=== PATIENT | male | born 1980 | race Caucasian/White ===

== ENCOUNTER 2019-09-08 15:45 | Emergency (ER) | payer OTHER, SELFPAY ==
[2019-09-08 16:03] VITALS: BP 105/60; PULSE 93; RESP 16; TEMP 37.9; O2SAT 97
--- NOTE | 2019-09-08 16:04 | ED.URI ---
HPI - URI/Sore Throat General Chief Complaint: Upper Respiratory Infection Stated Complaint: Body aches/cough/Fever/chills Time Seen by Provider: 09/08/19 16:22 Source: patient and RN notes reviewed Mode of arrival: ambulatory Limitations: no limitations History of Present Illness HPI Narrative: 39-year-old male presents with concern for fever, cough, body aches, ear pain. Reports he and his both came down with symptoms yesterday. Denies taking any medicines for symptoms MD elicited complaint: cough Related Data Allergies Allergy/AdvReac Type Severity Reaction Status Date / Time No Known Allergies Allergy Verified 09/08/19 16:12 Review of Systems Review of Systems: Narrative: CONSTITUTIONAL: Reports malaise, chills, sweats, or fever. EYES: Denies visual changes, redness, or discharge. ENT: Denies rhinorrhea, congestion, sinus pain, and sore throat. Reports otalgia CARDIOVASCULAR: Denies chest pain, palpitations, or edema. RESPIRATORY: Reports cough. Denies dyspnea. GASTROINTESTINAL: Denies abdominal pain, nausea, vomiting, diarrhea SKIN: Denies rash or itching. MUSCULOSKELETAL: Reports myalgia. NEUROLOGIC: Denies headache. All systems reviewed & are unremarkable except as noted in HPI and below PMFSH Comments At time of signature, agree with nursing past medical, surgical, social and family history. There is no relevant family history pertinent to the presenting complaint Exam Narrative: Exam Narrative: GENERAL: Well-appearing, well-nourished, and in no acute distress. HEAD: Normocephalic EYES: PERRLA, conjunctivae clear ENT: Nares clear, turbinates erythematous, clear discharge. Mucous membranes moist. TM pearly christiansen with dull light reflex bilaterally; no tragal tenderness. Oropharynx not erythematous without lesions. Tonsils not enlarged and without exudate, no drooling, no hoarseness, no trismus, uvula midline. NECK: Supple. No lymphadenopathy CHEST: Clear to auscultation, breath sounds equal. No wheezing, rhonchi, rales, or stridor. No respiratory distress, speaks in full sentences. Cough noted HEART: Regular rate and rhythm. No murmur heard. SKIN: Warm, dry, no rash. NEURO: Alert and oriented x3. PSYCH: Normal mood and affect Course Course Emergency Course: Patient is aware of diagnosis, understands and agrees to treatment plan. Anticipatory guidance given. Patient agrees to follow-up as directed and is aware of reasons to seek care at the emergency department. Portions of this record may have been created with voice recognition software Vital Signs Vital signs: Vital Signs Temperature 100.3 F H 09/08/19 16:03 Pulse Rate 93 09/08/19 16:03 Respiratory Rate 16 09/08/19 16:03 Blood Pressure 105/60 09/08/19 16:03 Pulse Oximetry 97 09/08/19 16:03 Temperature 100.3 F H 09/08/19 16:03 Pulse Rate 93 09/08/19 16:03 Respiratory Rate 16 09/08/19 16:03 Blood Pressure 105/60 09/08/19 16:03 Pulse Oximetry 97 09/08/19 16:03 Reviewed. MDM - URI/Sore Throat MDM Narrative Medical decision making narrative: Differential diagnosis considered: Strep pharyngitis, allergic rhinitis, upper respiratory tract infection, sinusitis, rhinosinusitis, nasopharyngitis. viral pharyngitis, otitis media, otitis externa, pneumonia, bronchitis, viral cough syndrome, viral syndrome, and influenza. Exam findings show no acute concerns or changes; patient is non-toxic appearing and is in no distress. Patient is appropriate for outpatient treatment and follow-up. Lab Data Attestation: I reviewed the patient's lab results. Labs: Influenza A Screen Negative Reference Range: Negative Influenza B Screen Negative Reference Range: Negative Critical Care Time Critical Care Time Critical Care Time: No Discharge Plan Discharge Clinical Impression: Influenza-like illness Patient Disposition: Home, Self-Care Condition: Stable Instructions: Influenza (ED)
== END 2019-09-08 16:40 | disposition home or self-care (01) ==
PROVIDERS: Emergency Provider Nurse Practitioner
DX: R05 Cough (principal); R50.9 Fever, unspecified; R52 Pain, unspecified
CPT/HCPCS: 87804; 99213; G0463

== ENCOUNTER 2022-07-03 12:43 | Emergency (ER) | payer BC, SELFPAY ==
[2022-07-03 12:52] VITALS: BP 132/87; PULSE 94; RESP 16; TEMP 36.6; O2SAT 98
--- NOTE | 2022-07-03 13:11 | ED.DENTAL ---
HPI - Dental/Oral General Chief complaint: Dental/Oral Stated complaint: jaw swollen Time Seen by Provider: 07/03/22 13:09 Source: patient Mode of arrival: ambulatory History of Present Illness HPI Narrative: 41-year-old male with history of tooth decay presented for complaint of right lower gum swelling, onset yesterday. States the swelling has increased over the last 3 hours. Denies injury or recent broken tooth. He has taken ibuprofen and orajel and used a tea bag to attempt to draw out infection. He endorses multiple broken teeth and caries. He is scheduled to see a dentist 07/23/2022 for possible extraction. Denies otalgia, nausea, vomiting, diarrhea, fever chills. 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 Also smoked cigarettes since age 8 and now only smokes cigars. MD Complaint: tooth pain Related Data Allergies Allergy/AdvReac Type Severity Reaction Status Date / Time No Known Allergies Allergy Verified 02/24/21 14:49 Review of Systems Review of Systems: CONSTITUTIONAL: Denies body aches, fever, chills ENT: Denies rhinorrhea, congestion, sore throat, or otalgia. Reports dental pain CARDIOVASCULAR: Denies chest pain, palpitations RESPIRATORY: Denies cough or dyspnea. SKIN: Denies rash, itching, or wounds. MUSCULOSKELETAL: Denies myalgia. NEUROLOGIC: Denies headache, numbness, tingling, or weakness. PMFSH Comments At time of signature, I have reviewed and agree with nursing past medical, surgical, social and family history unless otherwise noted. Please see nursing chart for further information. There is no relevant family history pertinent to the presenting complaint Exam Narrative: GENERAL: Appears in pain; no acute distress. HEAD: Normocephalic, atraumatic. EYES: EOMI. No redness or drainage. Conjunctivae normal. ENT: Dental pain location of #29, decaying tooth noted with lateral gum swelling and redness, tender; no active drainage; Mucous membranes pink and moist. TMs normal bilaterally. Throat normal. Uvula midline. NECK: Normal AROM. No lymphadenopathy. CHEST: Clear to auscultation. HEART: Regular rate and rhythm. No murmur appreciated. SKIN: Warm, dry, no rash. NEURO: Alert and oriented x3. Gait steady. Course Course Emergency Course: Patient is aware of diagnosis, understands and agrees to treatment plan. Anticipatory guidance given. Patient agrees to follow-up as directed and is aware of reasons to seek care at the emergency department. Portions of this record may have been created with voice recognition software Level of Care: Express Care Visit Vital Signs Vital signs: Vital Signs Temperature 97.8 F 07/03/22 12:52 Pulse Rate 94 07/03/22 12:52 Respiratory Rate 16 07/03/22 12:52 Blood Pressure 132/87 07/03/22 12:52 Pulse Oximetry 98 07/03/22 12:52 Oxygen Delivery Room Air 07/03/22 12:52 Temperature 97.8 F 07/03/22 12:52 Pulse Rate 94 07/03/22 12:52 Respiratory Rate 16 07/03/22 12:52 Blood Pressure 132/87 07/03/22 12:52 Pulse Oximetry 98 07/03/22 12:52 Oxygen Delivery Room Air 07/03/22 12:52 MDM - Dental/Oral MDM Narrative Medical decision making narrative: There are no focal signs of space occupying lesions that are compromising to the airway; no dysphagia, odynophagia, dysphonia, or dyspnea. No uvular deviation or soft palate edema. Patient is non-toxic appearing. The floor of the mouth is soft with no signs of Anthony's Angina; no induration below mandible, no neck pain. Patient is without trismus or drooling and able to swallow secretions. Patient is felt appropriate for discharge home with dental follow up as scheduled. Declines Rx Motrin. Differential Diagnosis Differential diagnosis: Likely gingival abscess, dental caries, toothache, dental abscess, fracture of tooth and aphthous ulcer Discharge Plan Discharge Clinical Impression: Dental abscess Patient Disposition: Home, Self-Care Condition: Stable Inst
== END 2022-07-03 13:24 | disposition home or self-care (01) ==
PROVIDERS: Emergency Provider Nurse Practitioner Family
DX: K04.7 Periapical abscess without sinus (principal)
CPT/HCPCS: 99213; G0463

== ENCOUNTER 2025-03-09 15:21 | Emergency (ER) | payer BC, SELFPAY ==
[2025-03-09 15:31] VITALS: BP 138/87; PULSE 82; RESP 18; TEMP 36.6; O2SAT 100
--- NOTE | 2025-03-09 16:04 | ED.HA ---
HPI - Headache General Chief Complaint: Headache Stated Complaint: Left Ear Pain/Headache Source: patient Mode of arrival: ambulatory Limitations: no limitations History of Present Illness HPI Narrative: Pt presents for evaluation of shock sensation in the left side of the head since yesterday. He state he had a closed head injury in 2007 after he fell and striking his head. He developed what he states is stroke-like symptoms in 2014, noting slurred speech, facial droop and episodes dropping things. He saw several neurologists and states that they were unable to determine the cause of his symptoms. At some point someone told him that he was having cluster headaches. Yesterday morning he developed sharp shock-like sensations in the left side of his head and ear. He also reports a tingling sensation in the left side of his head, left scalp sensitivity and problems with slurred speech. He denies any infectious symptoms including fever, cough, or sore throat. Related Data Home Medications ?Medication ?Instructions ?Recorded ?Confirmed ?Last Taken ?Type No Home Medications 03/09/25 03/09/25 Unknown History Allergies Allergy/AdvReac Type Severity Reaction Status Date / Time No Known Allergies Allergy Verified 03/09/25 15:33 Review of Systems Review of Systems: CONSTITUTIONAL: Denies fever, chills, or sweats. EYES: Denies visual changes, redness, or discharge. ENT:Reports left sided ear pain. Denies rhinorrhea, congestion, or sore throat CARDIOVASCULAR: Denies chest pain, palpitations, or edema. RESPIRATORY: Denies cough or dyspnea. GASTROINTESTINAL: Denies abdominal pain, nausea, vomiting, or diarrhea. GENITOURINARY: Denies dysuria or hematuria. SKIN: Denies rash or itching. MUSCULOSKELETAL: Denies back pain, joint pain, or myalgia. NEUROLOGIC: Reports headache, slurred speech and tingling sensation to the left side of his scalp PSYCHIATRIC: Denies anxiety or depression. [facility] Past Medical History Medical History No pertinent past medical history Surgical History Surgical History History of hernia repair Family History Family History Mother Family history non-contributory Social History Social History Smoking status: Former smoker Tobacco type: cigarettes Gender identity (if verbalized by the patient): Male Spiritual care concerns: No Exam Narrative: GENERAL: Well-appearing, well-nourished, and in no acute distress. HEAD: Normocephalic, atraumatic. EYES: PERRLA and EOMI. ENT: Nares clear, no rhinorrhea or epistaxis. Mucous membranes moist. Oropharynx without tonsillar hypertrophy exudate or other lesions. Bilateral TMs pearly christiansen nonbulging NECK: Supple. No adenopathy or masses. No carotid bruits or JVD CHEST: Clear to auscultation. No respiratory distress. No wheezes rales or rhonchi HEART: Regular rate and rhythm. No murmur heard. Normal peripheral pulses. ABDOMEN: Soft, nontender, nondistended, normal active bowel sounds. EXTREMITIES: Normal range of motion. No edema. SKIN: Warm, dry, no rash. NEURO: No focal deficits. Alert and oriented x3. Normal finger to nose exam. Able to perform rapid alternating movements without difficulty. PSYCH: Normal mood and affect. Course Course Emergency Course: This is a 44-year-old male who presented for evaluation shock-like sensations in his head with a prior history of stroke-like symptoms. His physical exam for me is unremarkable, although his subjective complaints are concerning. I recommended he go to the hospital for further evaluation. [facility] is his facility of choice. I contacted [facility] and spoke with nurse, Efrain. He indicates that Dr Haywood agrees to accept pt for transfer there. Patient transferred via private vehicle. Level of Care: Express Care Visit Vital Signs Vital signs: Vital Signs Temperature 36.6 C 03/09/25 15:31 Pulse Rate 82 03/09/25 15:31 Respiratory Rate 18 03/09/25 15:31 Blood Pressure 138/87 03/09/25 15:31 Pulse Oximetry 100 03/09/25 15:31 Oxygen Delivery Room Air 03/09/25 15:31 Temperature 36.6 C 03/09/25 15:31 Pulse Rate 82 03/09/25 15:31 Respiratory Rate 18 03/09/25 15:31 Blood Pressure 138/87 03/09/25 15:31 Pulse Oximetry 100 03/09/25 15:31 Oxygen Delivery Room Air 03/09/25 15:31 Discharge Plan Discharge Clinical Impression: Headache, Paresthesias Patient Disposition: Acute Care Hospital Condition: Stable Patient Language: German Prescriptions: No Action No Home Medications Follow-up/Referrals: PHYSICIAN NOT ON STAFF,NONSTAFF [Primary Care Provider] Time of Disposition: 16:19
--- OUTSIDE RECORDS SUMMARY | 2025-03-09 16:38 | XMS_ITS | Encounter Summary ---
Author Organization [facility] Address [address] [place] [address] Phone Care Team Providers Care Biodiesel Product Manager Name Role Phone Adilson Barragan MD Primary Care Provider + [phone] Feng Casanova APRN, VESSEL MASTER Unavailable [phone] Reason for Visit * Reason Onset Date Comments Prior Authorization 07/09/2023 Auth Denied- No P2P offeredOrdering Provider: InternalAppointment Info:Clinic: [facility] Provider: [facility] Appt Date/Time: Saturday 7:30 PM Payor + Plan: [employer] [place] [employer] [place] PPOCPT/Test: [id number] denied through: ELISHA Reason for denial: Your doctor told us you stop breathing for short periods of time while you are sleeping (sleep apnea). Your doctor ordered a sleep test Encounter Details Date Type Department Care Team ([facility] st Contact Info) Description 07/09/2023 Telephone [facility] Outpatient [address] [place] [address] Feng Casanova APRN, VESSEL MASTER #[address] [address] Prior Authorization (Auth Denied-No P2P offered//Ordering Provider: Internal//Appointment Info:/Clinic: [facility] /Provider: [facility] Appt Date/Time: Saturday 7:30 PM/ / //Payor + Plan: [place]//CPT/Test: 49820/Authorization denied through: CARELON //Reason for denial: Your doctor told us you stop breathing for short periods of time while you are sleeping (sleep apnea). Your doctor ordered a sleep test ) Social History Tobacco Use Types Packs/Day Years Used Date Smoking Tobacco: Some Days Cigarettes Cigars Smokeless Tobacco: Never Alcohol Use Standard Drinks/Week Comments Yes 0 (1 standard drink = 0.6 oz pur e alcohol) sometimes Sex and Gender Information Value Date Recorded Sex Assigned at Not on file Legal Sex Male 11:01 AM CDT Gender Identity Not on file Sexual Orientation Not on file documented as of this encounter Miscellaneous Notes * Telephone Encounter - Roya Flannery RN - 07/15/2023 2:37 PM CST LMOM 07/15/23 INSPECTOR * Telephone Encounter - Roya Flannery RN - 07/10/2023 11:40 AM CST LMOM 07/10/23 INSPECTOR * Telephone Encounter - Marisol Calvillo - 07/09/2023 11:05 AM CST Auth Denied-No P2P offered Ordering Provider: Internal Appointment Info: Clinic: [facility] Provider: [facility] Appt Date/Time: Saturday 7:30 PM Payor + Plan: [place] CPT/Test: 80688 Authorization denied through: ELISHA Reason for denial: Your doctor told us you stop breathing for short periods of time while you are sleeping (sleep apnea). Your doctor ordered a sleep test to see how a person breathes when asleep. Your doctor wants this test to be done in a sleep lab setting. It is common for people to have this test done at home. You need to have a reason why this test cannot be done at home. These reasons might include lung or heart disease. We reviewed the notes we have. The notes do not show that you cannothave this test done at home. Based on the information we have, this test is not medically necessary. We used [facility] Medical Benefits Management Clinical Guideline titled Sleep Disorder Management, Polysomnography and Home Sleep Apnea Testing to make this decision. You may view this guideline at www.carelon.com/fxi-[email or web address]. Add'l Steps Taken (Pt Notified, Reached out to Provider, etc.): SENT TE TO PROVIDER AND NURSE POOL Peer to Peer review offered by Payer: Yes Peer to Peer review expires: 07/19/23 Case #: [id number] Phone #: [phone] Physician: FENG Mcguire Notified? Yes Note for ordering office: If patient wishes to cancel the appointment, please complete cancellationprocess from the patient's appointment desk. Notification Made to Patient: No If no, provide reason: INSPECTOR documented in this encounter Plan of Treatment Not on file documented as of this encounter Visit Diagnoses Not on filedocumented in this encounter Care Teams Biodiesel Product Manager Relationship Specialty Start Date End Date Adilson Barragan MD [id number] [facility] [address] [place] [address] PCP - General Family Medicine 03/15/23 eFng Casanova APRN, CNP #2 [facility] [address] [place] [address] Nurse Practitioner Advanced Practice Nurse 06/12/23 documented as of this encounter
--- OUTSIDE RECORDS SUMMARY | 2025-03-09 16:38 | XMS_ITS | Clinical Summary ---
Author Organization [facility] Address [address] [place] [address] Care Team Providers Care Counter Manager Name Role Phone Adilson Barragan MD Primary Care Provider [phone] Gililan Banuelos PT Unavailable Unavailabl e Peterson Cazares MD Unavailable [phone] Allergies Active Allergy Reactions Criticality Noted Date Comments Naproxen Stomach upset Low 05/11/2024 Medications No known medications Active Problems Problem Noted Date Diagnosed Date Dental caries 05/04/2022 Mass of right submandibular region 05/04/2022 Right inguinal hernia 03/01/2022 Assessment & Plan (05/03/2022 9:02 AM CDT): Patient will avoid heavy lifting for 4 weeks. Then can return to work unrestricted. No submerging incisions for another week. Stool softener if needed to avoid straining. Patient will call back with any further questions or concerns. Assessment & Plan (03/01/2022 9:55 AM CDT): We will set the patient up for a robotic assisted right inguinal hernia repair with mesh. Postoperative restrictions have been discussed with regards to weight restrictions. Time needed off work also discussed. Pre-admission testing will be sent in. Consent to be obtained. All questions answered. Hemorrhoids 05/28/2018 Pneumonia due to infectious organism 05/28/2018 Liver cyst 05/28/2018 Elevated d-dimer 05/26/2018 Assessment & Plan (05/26/2018 5:25 AM PROP ATTENDANT): At on D-dimer was significantly elevated. CT of the chest was obtained. There was no definite pulmonary embolism described I had extensive discussion regarding risks and benefits of systemic anticoagulation including and not limited to GI bleed. Patient verbalized understanding. Given the history of increased pain with ambulation, leg swelling and elevated D-dimers will start on systemic anticoagulation with heparin. Also discussed if ultrasound is positive for blood clot and if stool is positive for blood patient most likely will need IVC filter placement to prevent pulmonary embolism. Patient verbalized understanding Check for stool for Hemoccult Duplex Ultrasound of the right lower extremity in a.m. To rule out DVT Cellulitis and abscess of leg 05/26/2018 Assessment & Plan (05/26/2018 5:32 AM PROP ATTENDANT): Right lower extremity with excoriations and mildly erythema. Patient was started on Rocephin and vancomycin White cell count is normal, lactate is negative Blood cultures are in progress Monitor CBC and BMP History of bloody stools 05/26/2018 Assessment & Plan (05/26/2018 5:19 AM PROP ATTENDANT): Patient reports recurrent episodes of bloody stools. Will obtain stool for Hemoccult Patient does not have primary care physician at this point Will get GI consult for further evaluation . Discussed possible causes which will include but not limited to hemorrhoids, IBD, colitis, diverticulitis polyps, av malformations, malignancy, etc. Patient verbalized understand also understands that at some point will need evaluation with colonoscopy and EGD for further assessment Will get social work consult to assist to establish with PCP Arm paresthesia, left 05/26/2018 Assessment & Plan (05/26/2018 5:34 AM PROP ATTENDANT): Patient reports previous history of injury to the neck area with pinched nerve. Completed physical therapy with significant improvement still complains of some paresthesia in the left arm. Will start on telemetry Will check for TSH and B12 level No personal history of of diabetes Will replete as needed Hypokalemia 05/26/2018 Assessment & Plan (05/26/2018 5:34 AM PROP ATTENDANT): Repleted with KCl Resolved Problems Problem Noted Date Diagnosed Date Resolved Date Unilateral inguinal hernia w ith obstruction and without gangrene 03/13/2022 05/03/2022 Overview (03/13/2022): Added automatically from request for surgery [id number] Acute deep vein thrombosis ( DVT) of distal end of right lower extremity 05/26/2018 05/26/2018 Assessment & Plan (05/26/2018 5:26 AM PROP ATTENDANT): Most likely acute DVT of the right lower extremity given increased pain with ambulation, leg swelling and elevated D-dimers Plan is discussed as above Surgical History Surgery Date Site/Laterality Comments WRIST SURGERY Left HERNIA REPAIR INGUINAL HERNIA REPAIR 04/24/2022 Right Medical History Medical History Date Comments Pleurisy Arthritis GI bleed IBS (irritable bowel syndrome) pinched nerve in neck causing st roke like symptoms for over a year Allergic rhinitis Stroke (HCC) Family History Medical History Relation Name Comments GI Bleed Father Hepatitis Father No Known Problems Mother Arthritis Other Stroke Other Relation Name Status Comments Father Mother Alive Other Social History Tobacco Use Types Packs/Day Years Used Date Smoking Tobacco: Every Day Cigars Started: 2017 Smokeless Tobacco: Never Tobacco Cessation:Ready to Q uit: Not Asked; Counseling Given: Not Answered Alcohol Use Standard Drinks/Week Comments Yes 0 (1 standard drink = 0.6 oz pur e alcohol) rarely AUDIT-C Answer Date Recorded Q1: How often do you have a drink containing alc ohol? Monthly or less 04/24/2022 Q2: How many drinks containi ng alcohol do you have on a typical day when you are drinking? 1 or 2 04/24/2022 Q3: How often do you have si x or more drinks on one occasion? Never 04/24/2022 Personal Safety Answer Date Recorded Have you ever been in or are you currently in a harmful physical or emotional relationship or is someone making you feel afraid or unsafe? Denies 05/11/2024 Sex and Gender Information Value Date Recorded Sex Assigned at Not on file Legal Sex Male 5:43 AM PROP ATTENDANT Gender Identity Not on file Sexual Orientation Not on file Obstetrics History Last Filed Vital Signs Vital Sign Reading Time Taken Comments Blood Pressure 113/81 05/11/2024 10:05 AM PROP ATTENDANT Pulse 88 05/11/2024 10:05 AM PROP ATTENDANT Temperature 36.4 C (97.5 F) 05/11/2024 9:25 AM PROP ATTENDANT Respiratory Rate 16 05/11/2024 10:05 AM PROP ATTENDANT Oxygen Saturation 97% 05/11/2024 10:05 AM PROP ATTENDANT Inhaled Oxygen Concentration - - Weight 61.2 kg (135 lb) 05/11/2024 9:25 AM PROP ATTENDANT Height 160 cm (5' 3) 05/11/2024 9:25 AM PROP ATTENDANT Body Mass Index 23.91 05/11/2024 9:25 AM PROP ATTENDANT Plan of Treatment Health Maintenance Due Date Last Done Comments Depression Screening 1980 Hepatitis C Screening 1980 Varicella Vaccines (1 of 2 - 13+ 2-dose series) 1993 Hepatitis B Screening 1998 Regular Well Visit/Exam 18-64 1998 Pneumococcal vaccine <65 (1 of 2 - PCV) 1999 HPV Vaccines (1 - 3-dose SCDM series) 2007 Influenza Vaccine (#1) 2025 DTaP/Tdap/Td Vaccine (2 - Td or Tdap) 05/06/203311/2022 Medical Devices Implanted Type Area Inventory Control Planner Device Identifier Shelf Expiration Date Model / Serial / Lot [employer] Progrip [id number] Self Fixate Flat Sheet Mesh Surgical Lelia Pet Latex Free [id number] - [id number] Implanted:Qty: 1 on 04/24/2022 by Ciarna Fleming MD at [facility] Right: Abdomen [employer] [id number] 08/28/2024 [id number] / / [id number] [facility] Advance Directives For more information, please contact: [phone] * Full Code (Latest Code Status on File) Date Activated Date Inactivated Comments 05/27/2018 11:45 AM 05/28/2018 3:16 PM * Full Code Date Activated Date Inactivated Comments 05/27/2018 11:45 AM 05/27/2018 11:45 AM * Full Code Date Activated Date Inactivated Comments 05/26/2018 12:40 AM 05/27/2018 11:45 AM * Full Code Date Activated Date Inactivated Comments 05/25/2018 11:35 PM 05/26/2018 12:40 AM Care Teams Counter Manager Relationship Specialty Start Date End Date Adilson Barragan MD [address] [facility] [address] [place] [address] PCP - General Family Medicine 01/11/22 Gillian Banuelos, PT Physical Therapist Physical Therapy 02/22/22 Peterson Cazares MD [address] [address] [facility] [address] [place] [address] Surgeon Orthopedic Surgery 03/01/22
--- OUTSIDE RECORDS SUMMARY | 2025-03-09 16:38 | XMS_ITS | Clinical Summary ---
Author Organization [facility] Address [facility] [place] [address] Care Team Providers Care Public Works Laborer Name Role Phone Adilson Barragan MD Primary Care Provider [phone] Allergies No known active allergies Medications No known medications Active Problems No known active problems Social History Tobacco Use Types Packs/Day Years Used Date Smoking Tobacco: Every Day Cigars Smokeless Tobacco: Never Alcohol Use Standard Drinks/Week Comments Yes 0 (1 standard drink = 0.6 oz pur e alcohol) rarely Sex and Gender Information Value Date Recorded Sex Assigned at Not on file Legal Sex Male 7:06 PM CDT Gender Identity Not on file Sexual Orientation Not on file Last Filed Vital Signs Vital Sign Reading Time Taken Comments Blood Pressure 114/94 12/28/2021 10:19 AM CDT Pulse 85 12/28/2021 10:19 AM CDT Temperature 36.6 C (97.8 F) 12/28/2021 10:19 AM CDT Respiratory Rate 18 12/28/2021 10:19 AM CDT Oxygen Saturation 100% 12/28/2021 10:19 AM CDT Inhaled Oxygen Concentration - - Weight 54.4 kg (120 lb) 12/28/2021 10:19 AM CDT Height 160 cm (5' 3) 12/28/2021 10:19 AM CDT Body Mass Index 21.26 12/28/2021 10:19 AM CDT Plan of Treatment Health Maintenance Due Date Last Done Comments Annual Physical 1983 DTaP, Tdap and Td Vaccines ( 1 - Tdap) 1999 Hepatitis B Vaccines (1 of 3 - 19+ 3-dose series) 1999 Pneumococcal Vaccine: Pediat rics (0 to 5 Years) and At-Risk Patients (6 to 49 Years) (1 of 2 - PCV) 1999 HPV Vaccines (1 - 3-dose SCD M series) 2007 COVID-19 Vaccine ( - 2023-2 5 season) 2025 Hepatitis C Completed 01/25/2022 Meningococcal B Vaccine Aged Out No l onger eligible based on patient's age to complete this topic Meningococcal Vaccine Aged Out No zeenat boris eligible based on patient's age to complete this topic RSV Immunizations Under 20 Months Aged Out No longer eligible based on patient's age to complete this topic Procedures Procedure Name Priority Date/Time Associated Diagnosis Comments HEPATITIS PANEL,ACUTE Routine 01/25/2022 3:05 PM CDT Bone disease from Last 3 Months or Most Recently Relevant to Health Maintenance Results * HEPATITIS PANEL,ACUTE (01/25/2022 3:05 PM CDT) HEPATITIS B SURFACE AG NON-REACTI VE NON-REACTI VE 01/25/2022 6:04 PM CDT [facility] HEP B CORE IGM NON-REACTI VE NON-REACTI VE 01/25/2022 6:04 PM CDT [facility] HAV IGM NON-REACTI VE NON-REACTI VE 01/25/2022 6:04 PM CDT [facility] HEPATITIS C AB NON-REACTI VE NON-REACTI VE 01/25/2022 6:04 PM CDT [facility] 01/25/2022 3:05 PM CDT us Adilson Barragan MD LABORATORY Final Result [facility] [address] [place] [address], [place] [phone] from Last 3 Months or Most Recently Relevant to Health Maintenance Insurance [facility] Care Teams Public Works Laborer Relationship Specialty Start Date End Date Adilson Barragan MD [address] [phone] PCP - General FAMILY PRACTICE 02/12/23
--- OUTSIDE RECORDS SUMMARY | 2025-03-09 16:38 | XMS_ITS | Clinical Summary ---
Author Organization [facility] Address [address] [place] [address] Phone Care Team Providers Care Filter Washer Name Role Phone Adilson Barragan MD Primary Care Provider [phone] Pascale Casanova APRN, [employer] Unavailable [phone] Allergies Active Allergy Reactions Criticality Noted Date Comments Naproxen Nausea 05/01/2023 Medications escitalopram (LEXAPRO) 10 MG Tablet Take 10 mg by mouth daily. Active rOPINIRole (REQUIP) 1 MG TabletIndicatio ns:Restless legs syndrome (RLS) Take 1 Tablet by mouth nightly. 90 Tablet 3 06/12/2023 Active traMADol (ULTRAM) 50 MG TabletIndicatio ns:Pilonidal cyst with abscess Take 1 Tablet by mouth every 6 hours as needed for Moderate or more severe pain. 20 Tablet 08/21/2023 Active Active Problems Problem Noted Date Diagnosed Date Excessive daytime sleepiness 06/12/2023 Snoring 06/12/2023 TIFFANY (obstructive sleep apnea) 06/12/2023 Restless legs syndrome (RLS) 06/12/2023 Personal history of tobacco use 06/12/2023 Social History Tobacco Use Types Packs/Day Years [...] Sign Reading Time Taken Comments Blood Pressure 130/72 09/06/2023 2:48 PM ETIOLOGY TEACHER Pulse 82 09/06/2023 2:48 PM ETIOLOGY TEACHER Temperature 36.6 C (97.8 F) 09/06/2023 2:48 PM ETIOLOGY TEACHER Respiratory Rate 14 09/06/2023 2:48 PM ETIOLOGY TEACHER Oxygen Saturation 96% 09/06/2023 2:48 PM ETIOLOGY TEACHER Inhaled Oxygen Concentration - - Weight 61.6 kg (135 lb 11.2 oz) 09/06/2023 2:48 PM ETIOLOGY TEACHER Height 160 cm (5' 3) 09/06/2023 2:48 PM ETIOLOGY TEACHER Body Mass Index 24.04 09/06/2023 2:48 PM ETIOLOGY TEACHER Plan of Treatment Health Maintenance Due Date Last Done Comments Hepatitis C Virus (HCV) Screening 1980 Hepatitis B Immunization (1 of 3 - 19+ 3-dose series) 1999 Pneumococcal Immunization Co mbined (1 of 2 - PCV) 1999 Human Papillomavirus (HPV) Immunization (1 - 3-dose SCDM series) 2007 Influenza Immunization (#1) 2025 SARS-COV-2 Immunization ( season) 2025 Respiratory Syncytial Virus (RSV) Immunization (Adult) (1 - 1-dose 75+ series) 2055 DTaP/Tdap/Td Immunization Discontinued 05/06/2023 TdaP Immunization Completed 05/06/2023 Meningococcal Immunization (ACWY) Aged Out No longer eligible based on patient's age to complete this topic Rotavirus Immunization Aged Out No lo nger eligible based on patient's age to complete this topic Insurance [facility] Care Teams Filter Washer Relationship Specialty Start Date End Date Adilson Barragan MD [id number] [facility] [address] [place] [address] PCP - General Family Medicine 03/15/23 Pascale Casanova APRN, [employer]ER [address] [address] Nurse Practitioner Advanced Practice Nurse 06/12/23
== END 2025-03-09 16:11 | disposition short-term general hospital (02) ==
PROVIDERS: Emergency Provider Nurse Practitioner
DX: R51.9 Headache, unspecified (principal); R20.2 Paresthesia of skin; Z87.891 Personal history of nicotine dependence
CPT/HCPCS: 99212; G0463